=== PATIENT | female | born 1990 | race Caucasian/White ===

== ENCOUNTER → 2016-10-05 | Outpatient (CLI) | payer MEDICARE | LOC: RAD 12:25 | DX: M54.5 Low back pain (principal); M25.551 Pain in right hip | CPT/HCPCS: 72100; 73502 ==

== ENCOUNTER 2021-01-18 21:49 | Emergency (ER) | payer OTHER ==
[~2021-01-18 21:49] MED LIST: BUPRENORPHIN-N1 EACH SL; CEFDINIR300 MG PO; IBUPROFEN600 MG PO; PRENATAL VITAM1 EAC3 PO; SUBUTEX 8 MG TAB8 MG GT; SUBUTEX 8 MG TAB8 MG SL
[2021-01-18] MEDS ORDERED: LODINE CAP 300300 MG PO (22:54)
== END 2021-01-18 23:14 | disposition home or self-care (01) ==
LOC: ER1 21:49
DX: S63.501A Unspecified sprain of right wrist, initial encounter (principal); S50.11XA Contusion of right forearm, initial encounter; F17.210 Nicotine dependence, cigarettes, uncomplicated; W19.XXXA Unspecified fall, initial encounter; Y92.009 Unspecified place in unspecified non-institutional (private) residence as the place of occurrence of the external cause; Z79.899 Other long term (current) drug therapy
CPT/HCPCS: 29125; 73090; 73130; 99283

== ENCOUNTER 2021-01-20 22:27 | Emergency (ER) | payer OTHER ==
[~2021-01-20 22:27] MED LIST changes: +LODINE CAP 300300 MG PO
[2021-01-21] MEDS ORDERED: IBUPROFEN600 MG PO (03:36)
== END 2021-01-21 03:50 | disposition home or self-care (01) ==
LOC: ER1 22:27
DX: S60.221A Contusion of right hand, initial encounter (principal); Z90.89 Acquired absence of other organs; F17.210 Nicotine dependence, cigarettes, uncomplicated; W19.XXXA Unspecified fall, initial encounter; Z88.6 Allergy status to analgesic agent
CPT/HCPCS: 73200; 96372; 99283; J1885

== ENCOUNTER 2021-07-02 14:11 | Emergency (ER) | payer OTHER | END 2021-07-02 16:00 | disposition home or self-care (01) | LOC: ER1 14:11 | DX: S80.11XA Contusion of right lower leg, initial encounter (principal); F17.200 Nicotine dependence, unspecified, uncomplicated; W22.8XXA Striking against or struck by other objects, initial encounter | CPT/HCPCS: 73590; 99283 ==

== ENCOUNTER → 2022-04-11 | Outpatient (CLI) | payer OTHER | LOC: HEART 5 07:40 | DX: R55 Syncope and collapse (principal) ==